=== PATIENT | male | born 1960 | race Caucasian/White ===

== ENCOUNTER 2022-12-01 08:36 | Emergency (ER) | payer OTHER ==
[~2022-12-01] VITALS: Ht 188 cm; Wt 113.4 kg
[2022-12-01 08:36] VITALS: BP_SYST 103
[2022-12-01] MEDS ORDERED: ACETAMINOPHEN 500 MG TABLET ONE (09:25)
[2022-12-01] MEDS ORDERED: NACL 0.9% 1,000 ML IV ONE (09:45)
[2022-12-01] MEDS ORDERED: KETOROLAC TROMETHAMINE 30 MG VIAL IVP ONE (09:45)
[2022-12-01] MEDS ORDERED: HYDROCORTISONE SOD SUCC 100 MG/2 ML VIAL IVP ONE (09:45)
[2022-12-01] MEDS ORDERED: ONDANSETRON HCL 4 MG/2 ML VIAL IVP ONE (09:45)
[2022-12-01 10:20] VITALS: BP_SYST 113
[2022-12-01 10:33] LABS: BASOPHILS % (AUTO) 0.1 % (0.0-2.0); HEMATOCRIT 46.9 % (36-54); LYMPHOCYTES % (AUTO) 18.2 % (20.5-51.5); MEAN CORPUSCULAR HEMOGLOBIN 30 pg (27-31); MEAN CORPUSCULAR HGB CONC 34 % (32-36); MEAN CORPUSCULAR VOLUME 89 fL (79.0-98.0); MONOCYTES # (AUTO) 0.7 K/uL (0.0-1.0); MONOCYTES % (AUTO) 12.4 % (1.7-9.3); NEUTROPHILS % (AUTO) 69.3 % (40.0-70.0); PLATELET COUNT (AUTO) 121 K/uL (130-430); RED BLOOD CELL COUNT(AUTO) 5.26 MIL/uL (4.2-6.2); RED CELL DISTRIBUTION WIDTH 13.3 % (9.0-15.0); WHITE BLOOD COUNT (AUTO) 5.7 K/uL (4.8-10.8)
[2022-12-01 10:40] LABS: ANION GAP 11 (5-15); CALCIUM 8.7 mg/dL (8.4-11.0); CHLORIDE 95 mmol/L (98-107); CREATININE 1.35 mg/dL (0.55-1.30); GLUCOSE 108 mg/dL (70-99); UREA NITROGEN, BLOOD 11 mg/dL (8-21)
[2022-12-01 10:45] LABS: GFR AFRICAN AMERICAN 69 mL/min (>90)
[2022-12-01 10:51] LABS: INR 1.1 (0.80-1.20)
[2022-12-01 10:53] LABS: ACETAMINOPHEN 1 ug/mL (1-30); ALANINE AMINOTRANSFERASE 30 U/L (12-78); ALBUMIN 3.6 g/dL (3.4-4.8); ASPARTATE AMINOTRANSFERASE 24 U/L (10-37); THYROID STIMULATING HORMONE 6.99 uIu/mL (0.34-4.82); TOTAL BILIRUBIN 0.7 mg/dL (0.0-1.0)
[2022-12-01] MEDS ORDERED: ONDA-8 TL (11:40)
== END 2022-12-01 12:00 | disposition home or self-care (01) ==
LOC: SED 08:36
DX: U07.1 COVID-19 (principal); E86.0 Dehydration; E03.9 Hypothyroidism, unspecified; E27.1 Primary adrenocortical insufficiency; R50.9 Fever, unspecified; R05.9 Cough, unspecified; R11.0 Nausea; Z79.899 Other long term (current) drug therapy
CPT/HCPCS: 99284; 96374; 71045; 96375; 96361; 80053; 84443; 85025; 85610; 85730; 87040; 84484; 36415; 82533; 83605; G0481; J1720; J1885; J2405; J7030; G0480

== ENCOUNTER 2024-07-31 14:45 | Emergency (ER) | payer OTHER ==
[~2024-07-31 14:45] MED LIST: ONDA-8 TL
== END 2024-07-31 15:38 | disposition left against medical advice (07) ==
LOC: SED 14:45
DX: R53.1 Weakness (principal); Z53.21 Procedure and treatment not carried out due to patient leaving prior to being seen by health care provider

== ENCOUNTER 2024-08-07 10:20 | Emergency (ER) | payer OTHER ==
[~2024-08-07] VITALS: Ht 188 cm; Wt 111.1 kg
[2024-08-07 10:30] VITALS: BP_SYST 148; PULSE 77; RESP 22; TEMP 98.3; O2SAT 98
[2024-08-07 10:58] LABS: BASOPHILS % (AUTO) 0.4 % (0.0-2.0); EOSINOPHILS % (AUTO) 0.1 % (0.0-4.0); HEMATOCRIT 47.5 % (36-54); HEMOGLOBIN 16.2 g/dL (14.0-18.0); LYMPHOCYTES # (AUTO) 1.9 K/uL (1.0-5.5); LYMPHOCYTES % (AUTO) 42.9 % (20.5-51.5); MEAN CORPUSCULAR HEMOGLOBIN 31 pg (27-31); MEAN CORPUSCULAR HGB CONC 34 % (32-36); MEAN CORPUSCULAR VOLUME 90 fL (79.0-98.0); MONOCYTES # (AUTO) 0.3 K/uL (0.0-1.0); MONOCYTES % (AUTO) 6.5 % (1.7-9.3); NEUTROPHILS # (AUTO) 2.2 K/uL (1.8-7.7); NEUTROPHILS % (AUTO) 50.1 % (40.0-70.0); PLATELET COUNT (AUTO) 134 K/uL (130-430); RED BLOOD CELL COUNT(AUTO) 5.29 MIL/uL (4.2-6.2); WHITE BLOOD COUNT (AUTO) 4.5 K/uL (4.8-10.8)
[2024-08-07] MEDS: NACL 0.9% 2,000 ML IV ONE (11:02)
[2024-08-07 11:18] LABS: INFLUENZA TYPE A Negative (NEGATIVE); INFLUENZA TYPE B NEGATIVE (NEGATIVE)
[2024-08-07 11:20] LABS: ANION GAP 12 (5-15); CALCIUM 8.7 mg/dL (8.4-11.0); CARBON DIOXIDE 25 mmol/L (23-29); CHLORIDE 103 mmol/L (98-107); CREATININE 1.42 mg/dL (0.55-1.30); GFR AFRICAN AMERICAN 65 mL/min (>90); GLUCOSE 138 mg/dL (74-106); POTASSIUM 3.6 mmol/L (3.5-5.1); SODIUM SERUM 140 mmol/L (136-145); UREA NITROGEN, BLOOD 19 mg/dL (8-21)
[2024-08-07 11:22] LABS: GFR NON AFRICAN-AMERICAN 53 mL/min (>90)
[2024-08-07 11:33] LABS: COVID19 ANTIGEN SOFIA FIA NEGATIVE (NEGATIVE)
[2024-08-07 14:10] VITALS: BP_SYST 148; PULSE 77; RESP 22; TEMP 98.3; O2SAT 98
== END 2024-08-07 14:11 | disposition home or self-care (01) ==
LOC: SED 10:20
DX: R53.83 Other fatigue (principal); E27.1 Primary adrenocortical insufficiency; Z20.822 Contact with and (suspected) exposure to COVID-19; E03.9 Hypothyroidism, unspecified; Z79.899 Other long term (current) drug therapy
CPT/HCPCS: 99285; 96360; 71045; 96361; 87426; 80048; 85025; 84484; 36415; 93005; 87804 ×2; J7030

== ENCOUNTER 2024-08-14 10:37 | Emergency (ER) | payer OTHER ==
[~2024-08-14] VITALS: Ht 188 cm; Wt 113.4 kg
[2024-08-14 11:02] VITALS: BP_SYST 122; PULSE 78; RESP 18; TEMP 97.6; O2SAT 100
[2024-08-14 11:24] LABS: BASOPHILS % (AUTO) 0.2 % (0.0-2.0); EOSINOPHILS % (AUTO) 0.2 % (0.0-4.0); HEMATOCRIT 44.7 % (36-54); HEMOGLOBIN 15.1 g/dL (14.0-18.0); LYMPHOCYTES # (AUTO) 2.3 K/uL (1.0-5.5); LYMPHOCYTES % (AUTO) 41.6 % (20.5-51.5); MEAN CORPUSCULAR HEMOGLOBIN 31 pg (27-31); MEAN CORPUSCULAR HGB CONC 34 % (32-36); MEAN CORPUSCULAR VOLUME 92 fL (79.0-98.0); MONOCYTES # (AUTO) 0.5 K/uL (0.0-1.0); MONOCYTES % (AUTO) 9.5 % (1.7-9.3); NEUTROPHILS # (AUTO) 2.7 K/uL (1.8-7.7); NEUTROPHILS % (AUTO) 48.5 % (40.0-70.0); PLATELET COUNT (AUTO) 157 K/uL (130-430); RED BLOOD CELL COUNT(AUTO) 4.87 MIL/uL (4.2-6.2); WHITE BLOOD COUNT (AUTO) 5.5 K/uL (4.8-10.8)
[2024-08-14 11:35] LABS: CALCIUM 8.7 mg/dL (8.4-11.0); CREATININE 1.22 mg/dL (0.55-1.30); POTASSIUM 3.9 mmol/L (3.5-5.1)
[2024-08-14] MEDS: NACL 0.9% 1,000 ML IV ONE (11:37)
[2024-08-14] MEDS: HYDROCORTISONE SOD SUCC 100 MG/2 ML VIAL IVP ONE (11:37)
[2024-08-14 12:33] VITALS: BP_SYST 122; PULSE 78; RESP 18; TEMP 97.6; O2SAT 100
== END 2024-08-14 12:36 | disposition home or self-care (01) ==
LOC: SED 10:37
DX: E27.2 Addisonian crisis (principal); R53.1 Weakness; E03.9 Hypothyroidism, unspecified; E27.1 Primary adrenocortical insufficiency; Z79.899 Other long term (current) drug therapy
CPT/HCPCS: 99283; 96374; 96361; 80048; 85025; 36415; J1720; J7030